=== PATIENT | male | born 1960 | race Caucasian/White ===

== ENCOUNTER 2019-11-07 09:31 | Emergency (ER) | payer MEDICAID ==
[~2019-11-07] VITALS: Ht 177.8 cm; Wt 72.0 kg
[2019-11-07 10:54] LABS: BASOPHILS # (AUTO) 0.07 x10^3/uL (0-0.1); BASOPHILS % (AUTO) 1 % (0-1); EOSINOPHILS # (AUTO) 0.06 x10^3/uL (0-0.4); EOSINOPHILS % (AUTO) 1 % (1-7); LYMPHOCYTES # (AUTO) 2.22 x10^3/uL (1-3.4); LYMPHOCYTES % (AUTO) 17 % (22-44); MD NO; MEAN CORPUSCULAR HEMOGLOBIN 30.6 pg (27.5-34.5); MEAN CORPUSCULAR VOLUME 92.6 fL (81-97); MEAN PLATELET VOLUME 9.9 fL (7.4-10.4); MONOCYTES # (AUTO) 0.54 x10^3/uL (0.2-0.8); MONOCYTES % (AUTO) 4 % (2-9); NEUTROPHILS # (AUTO) 9.95 x10^3/uL (1.8-6.8); NEUTROPHILS % (AUTO) 78 % (42-75); PLATELET COUNT 187 x10^3/uL (130-400); RED BLOOD COUNT 5.45 x10^6/uL (4.38-5.82); RED CELL DISTRIBUTION WIDTH 13.6 % (9.4-14.8)
[2019-11-07 11:07] LABS: ALANINE AMINOTRANSFERASE 56 U/L (12-78); ALBUMIN 2.9 g/dL (3.4-5.0); ANION GAP 8 mmol/L (5-15); CALCIUM 8.5 mg/dL (8.5-10.1); CHLORIDE 100 mmol/L (98-107); CREATININE 1.08 mg/dL (0.7-1.3)
[2019-11-07 11:11] LABS: ALKALINE PHOSPHATASE 109 U/L (45-117); TOTAL PROTEIN 5.7 g/dL (6.4-8.2); TROPONIN I 0.034 ng/mL (0.000-0.045)
[2019-11-07] MEDS ORDERED: INSULIN SINGLE DOSE, ER ONE ×2 (11:16→12:09)
[2019-11-07] MEDS ORDERED: INSULIN REGULAR 100 UNITS/ML, 3ML VIAL SQ-INSULIN ONE (11:30)
[2019-11-07] MEDS ORDERED: SODIUM CHLORIDE 0.9% 1,000ML IVBOLUS ONE (12:30)
[2019-11-07] MEDS ORDERED: INSULIN REGULAR 100 UNITS/ML, 3ML VIAL IVPush ONE (12:30)
--- NOTE | 2019-11-07 13:30 | NUR ---
PB&J, STRING CHEESE, AND MILK PROVIDED TO PT PRIOR TO DC. PT DENIES ANY S/S OF LOW BLOOD SUGAR.
[2019-11-07 13:59] VITALS: BP 123/74
== END 2019-11-07 14:04 | disposition home or self-care (01) ==
LOC: ED 09:47
DX: E11.65 Type 2 diabetes mellitus with hyperglycemia (principal); Z72.9 Problem related to lifestyle, unspecified; F17.200 Nicotine dependence, unspecified, uncomplicated; I48.91 Unspecified atrial fibrillation; R94.31 Abnormal electrocardiogram [ECG] [EKG]
CPT/HCPCS: 36415; 71045; 80053; 82962; 84484; 85025; 93005; 96361; 96374; 99285; J1815; J7030

== ENCOUNTER 2019-12-09 09:39 | Inpatient (IN) | payer MEDICAID ==
[~2019-12-09] VITALS: Ht 177.8 cm; Wt 69.7 kg
--- NOTE | 2019-12-09 10:09 | NUR ---
L EYE BLURRED VISION X2 WEEKS, R ANKLE SWELLING. PT IN AFIB RATE 100-140'S IN TRIAGE, PT STATES HX AFIT, NOT ON BLOOD THINNERS. MD AT BEDSIDE FOR EVAL. PT PLACED ON MONITOR, CALL LIGHT WITHIN REACH.
--- NOTE | 2019-12-09 10:11 | NUR ---
EYE PATCH GIVEN TO PT
[2019-12-09] MEDS ORDERED: DILTIAZEM 5 MG/ML, 5ML IV ONE (10:30)
[2019-12-09] MEDS ORDERED: SODIUM CHLORIDE FLUSH 10ML SYR IVF ONE (10:30)
[2019-12-09] MEDS ORDERED: DILTIAZEM 5 MG/ML, 5ML ONE (10:32)
[2019-12-09 10:39] LABS: PROTHROMBIN TIME 10.6 Seconds (9.6-11.5)
[2019-12-09 10:40] LABS: ALANINE AMINOTRANSFERASE 25 U/L (12-78); ALBUMIN 2.7 g/dL (3.4-5.0); ANION GAP 9 mmol/L (5-15); CALCIUM 8.1 mg/dL (8.5-10.1); CHLORIDE 95 mmol/L (98-107); CREATININE 1.25 mg/dL (0.7-1.3)
[2019-12-09 10:41] LABS: BASOPHILS # (AUTO) 0.02 x10^3/uL (0-0.1); BASOPHILS % (AUTO) 0 % (0-1); EOSINOPHILS # (AUTO) 0.04 x10^3/uL (0-0.4); EOSINOPHILS % (AUTO) 0 % (1-7); LYMPHOCYTES # (AUTO) 1.29 x10^3/uL (1-3.4); LYMPHOCYTES % (AUTO) 9 % (22-44); MD NO; MEAN CORPUSCULAR HEMOGLOBIN 29.9 pg (27.5-34.5); MEAN CORPUSCULAR HGB CONC 32.5 g/dL (33.2-36.2); MEAN CORPUSCULAR VOLUME 91.8 fL (81-97); MEAN PLATELET VOLUME 9.8 fL (7.4-10.4); MONOCYTES % (AUTO) 5 % (2-9); NEUTROPHILS # (AUTO) 12.02 x10^3/uL (1.8-6.8); NEUTROPHILS % (AUTO) 85 % (42-75); PLATELET COUNT 203 x10^3/uL (130-400); RED BLOOD COUNT 4.88 x10^6/uL (4.38-5.82); RED CELL DISTRIBUTION WIDTH 14.3 % (9.4-14.8)
--- NOTE | 2019-12-09 10:44 | NUR ---
PT MEDICATED PER MAR
[2019-12-09 10:45] LABS: ALKALINE PHOSPHATASE 116 U/L (45-117); BILIRUBIN,TOTAL 1.4 mg/dL (0.2-1.0); TOTAL PROTEIN 5.6 g/dL (6.4-8.2); TROPONIN I 0.033 ng/mL (0.000-0.045)
[2019-12-09] MEDS ORDERED: SODIUM CHLORIDE 0.9% 1,000ML IVBOLUS ONE ×2 (11:00→12:00)
--- NOTE | 2019-12-09 11:14 | NUR ---
NOTIFIED OF CRITICAL BLOOD SUGAR 638, 1ST LITER IVF STARTED.
[2019-12-09] MEDS ORDERED: SODIUM CHLORIDE 0.9% 1,000 ML IV ONE (13:52)
--- NOTE | 2019-12-09 14:46 | NUR ---
REPORT TO MIGUEL ANGEL SAGASTUME
[2019-12-09] MEDS ORDERED: ONDANSETRON ODT 4 MG PO PRN (15:30)
[2019-12-09] MEDS ORDERED: DOCUSATE 100 MG CAPSULE PO PRN (15:30)
[2019-12-09] MEDS ORDERED: POLYETHYLENE GLYCOL 17 GM PACKET PO PRN (15:30)
[2019-12-09] MEDS ORDERED: ONDANSETRON 2MG/ML, 2ML IVPush PRN (15:30)
[2019-12-09 15:49] VITALS: BP 145/91
[2019-12-09] MEDS: INSULIN LISPRO 100 UNITS/ML, PEN SQ-INSULIN SCH ×2 (16:00→20:41)
[2019-12-09] MEDS: METOPROLOL TARTRATE 25 MG TAB PO SCH (17:21)
[2019-12-09] MEDS: ENOXAPARIN 40 MG/0.4 ML SQ SCH (17:21)
[2019-12-09] MEDS: NICOTINE 14MG/24 HR PATCH.TD24 TD SCH (17:26)
[2019-12-09] MEDS: ACETAMINOPHEN 325 MG TABLET PO PRN (20:40)
[2019-12-09 21:08] VITALS: BP 119/78
[2019-12-10 01:13] VITALS: BP 118/79
[2019-12-10] MEDS: METOPROLOL TARTRATE 25 MG TAB PO SCH ×2 (05:05→17:18)
[2019-12-10] MEDS: ASPIRIN 81 MG TABLET EC PO SCH (05:05)
[2019-12-10 06:53] LABS: MICROSCOPIC NOT IND
[2019-12-10 06:54] VITALS: BP 132/82
[2019-12-10] MEDS: INSULIN LISPRO 100 UNITS/ML, PEN SQ-INSULIN SCH ×4 (08:21→21:44)
[2019-12-10 12:55] VITALS: BP 121/85
[2019-12-10] MEDS: NICOTINE 14MG/24 HR PATCH.TD24 TD SCH (17:20)
[2019-12-10] MEDS: ENOXAPARIN 40 MG/0.4 ML SQ SCH (17:20)
[2019-12-10 20:07] VITALS: BP 124/84
[2019-12-10] MEDS: INSULIN GLARGINE 100 UNITS/ML, PEN SQ-INSULIN SCH (21:44)
[2019-12-11] VITALS (7 sets, daily range): BP systolic 115–155; BP diastolic 75–90
[2019-12-11] MEDS: ASPIRIN 81 MG TABLET EC PO SCH (05:55)
[2019-12-11] MEDS: METOPROLOL TARTRATE 25 MG TAB PO SCH (05:55)
[2019-12-11] MEDS: ACETAMINOPHEN 325 MG TABLET PO PRN ×2 (05:55→15:43)
[2019-12-11] MEDS: INSULIN LISPRO 100 UNITS/ML, PEN SQ-INSULIN SCH ×3 (07:00→16:51)
[2019-12-11] MEDS ORDERED: METOPROLOL TARTRATE 25 MG TAB PO ONE (08:00)
[2019-12-11] MEDS: INSULIN GLARGINE 100 UNITS/ML, PEN SQ-INSULIN SCH (08:32)
[2019-12-11] MEDS ORDERED: INSU100I13 SQ-INSULIN (15:30)
[2019-12-11] MEDS ORDERED: METO25TA35 PO (15:30)
[2019-12-11] MEDS ORDERED: LISI5TAB7 PO (15:30)
[2019-12-11] MEDS ORDERED: ASPI81TA45 PO (15:30)
[2019-12-11] MEDS: ENOXAPARIN 40 MG/0.4 ML SQ SCH (17:00)
[2019-12-11] MEDS: NICOTINE 14MG/24 HR PATCH.TD24 TD SCH (17:00)
[2019-12-11] MEDS ORDERED: METOPROLOL TARTRATE 25 MG TAB PO SCH (18:00)
== END 2019-12-11 17:58 | disposition home or self-care (01) | DRG 309 ==
LOC: ED 10:28 → EDIP 13:52 → 5SO 15:11
PROVIDERS: ADMIT Family Medicine; ATTEND Family Medicine
DX: I48.91 Unspecified atrial fibrillation (principal); D68.69 Other thrombophilia; R65.10 Systemic inflammatory response syndrome (SIRS) of non-infectious origin without acute organ dysfunction; E11.65 Type 2 diabetes mellitus with hyperglycemia; I10 Essential (primary) hypertension; H53.8 Other visual disturbances; E80.6 Other disorders of bilirubin metabolism; Z59.0 Homelessness; Z72.0 Tobacco use; Z79.4 Long term (current) use of insulin; Z79.82 Long term (current) use of aspirin; Z91.19 Patient's noncompliance with other medical treatment and regimen
CPT/HCPCS: 36415; 80053; 81003; 82962; 84484; 85025; 85610; 85730; 93005; 96372; 99291; G0378; J1650; J1815; J7030

== ENCOUNTER 2020-01-27 21:21 | Inpatient (IN) | payer MEDICAID ==
[~2020-01-27] VITALS: Ht 177.8 cm; Wt 70.2 kg
[~2020-01-27 21:21] MED LIST: ASPI81TA45 PO; INSU100I13 SQ-INSULIN; LISI5TAB7 PO; METO25TA35 PO
[2020-01-27] MEDS ORDERED: DILTIAZEM 5 MG/ML, 5ML ONE ×2 (21:43→22:16)
[2020-01-27] MEDS ORDERED: SODIUM CHLORIDE 0.9% 1,000ML IVBOLUS ONE (22:00)
[2020-01-27] MEDS ORDERED: DILTIAZEM 5 MG/ML, 5ML IV ONE (22:00)
[2020-01-27 22:01] LABS: ALBUMIN 2.7 g/dL (3.4-5.0); ANION GAP 11 mmol/L (5-15); CALCIUM 8.8 mg/dL (8.5-10.1); CHLORIDE 97 mmol/L (98-107); CREATININE 1.19 mg/dL (0.7-1.3)
[2020-01-27 22:05] LABS: TROPONIN I 0.051 ng/mL (0.000-0.045)
[2020-01-27 22:13] LABS: MEAN CORPUSCULAR HEMOGLOBIN 29.9 pg (27.5-34.5); MEAN CORPUSCULAR HGB CONC 33.1 g/dL (33.2-36.2); MEAN PLATELET VOLUME 10.6 fL (7.4-10.4); PLATELET COUNT 229 x10^3/uL (130-400); RED BLOOD COUNT 5.02 x10^6/uL (4.38-5.82); RED CELL DISTRIBUTION WIDTH 14.8 % (9.4-14.8)
[2020-01-27] MEDS ORDERED: ASPIRIN 81 MG TABLET CHEW ONE (22:16)
[2020-01-27] MEDS ORDERED: NEOSPORIN OINT. PKT 1 PACKET ONE (22:17)
[2020-01-27] MEDS ORDERED: ASPIRIN 325 MG TABLET ONE (22:29)
[2020-01-27] MEDS ORDERED: ASPIRIN 325 MG TABLET PO ONE (22:30)
[2020-01-27] MEDS ORDERED: DILTIAZEM 5 MG/ML, 5ML IVPush ONE (22:30)
[2020-01-27 23:00] LABS: BASOPHILS # (AUTO) 0.09 x10^3/uL (0-0.1); BASOPHILS % (AUTO) 1 % (0-1); EOSINOPHILS # (AUTO) 0.04 x10^3/uL (0-0.4); EOSINOPHILS % (AUTO) 0 % (1-7); LYMPHOCYTES # (AUTO) 2.02 x10^3/uL (1-3.4); LYMPHOCYTES % (AUTO) 11 % (22-44); MD SCAN; MONOCYTES % (AUTO) 9 % (2-9); NEUTROPHILS # (AUTO) 14.66 x10^3/uL (1.8-6.8); NEUTROPHILS % (AUTO) 79 % (42-75)
[2020-01-27] MEDS ORDERED: ACETAMINOPHEN 650 MG/20.3 ML UDC PO PRN (23:00)
[2020-01-27] MEDS ORDERED: BISACODYL 5 MG EC TABLET PO PRN (23:00)
[2020-01-27] MEDS ORDERED: BISACODYL 10 MG SUPP PR PRN (23:00)
[2020-01-27] MEDS ORDERED: ZOLPIDEM 5MG TABLET PO PRN (23:00)
[2020-01-27] MEDS ORDERED: ONDANSETRON 2MG/ML, 2ML IV PRN (23:00)
[2020-01-27 23:23] LABS: FREE T4 (FREE THYROXINE) 1.34 ng/dL (0.76-1.46); TROPONIN I 0.048 ng/mL (0.000-0.045)
[2020-01-28] MEDS ORDERED: ACETAMINOPHEN 325 MG TABLET ONE (02:13)
[2020-01-28] MEDS: INSULIN LISPRO 100 UNITS/ML, PEN SQ-INSULIN SCH ×5 (02:17→20:29)
[2020-01-28] MEDS: ACETAMINOPHEN 325 MG TABLET PO PRN ×3 (02:17→20:57)
[2020-01-28] MEDS: AMOXICILLIN/CLAV 875-125MG TABLET PO SCH ×3 (02:17→20:28)
[2020-01-28] MEDS: SODIUM CHLORIDE 0.9% 1,000 ML IV SCH ×2 (02:18→15:00)
[2020-01-28] MEDS: DILTIAZEM 60 MG TABLET PO SCH ×4 (02:19→20:28)
[2020-01-28 02:37] VITALS: BP 146/95
[2020-01-28] MEDS: ASPIRIN 81 MG TABLET EC PO SCH (04:46)
[2020-01-28] MEDS: METOPROLOL TARTRATE 50 MG TAB PO SCH ×2 (04:46→18:15)
[2020-01-28] MEDS: SODIUM CHLORIDE NASAL SPRAY 45ML BOTTLE NAS PRN ×2 (04:47→08:30)
[2020-01-28 05:50] LABS: MEAN CORPUSCULAR HEMOGLOBIN 29.3 pg (27.5-34.5); MEAN CORPUSCULAR HGB CONC 32.1 g/dL (33.2-36.2); PLATELET COUNT 204 x10^3/uL (130-400); RED BLOOD COUNT 4.81 x10^6/uL (4.38-5.82); RED CELL DISTRIBUTION WIDTH 14.9 % (9.4-14.8)
[2020-01-28 05:59] LABS: CHLORIDE 102 mmol/L (98-107)
[2020-01-28 06:14] LABS: ALANINE AMINOTRANSFERASE 27 U/L (12-78); ALBUMIN 2.4 g/dL (3.4-5.0); ALKALINE PHOSPHATASE 94 U/L (45-117); ANION GAP 7 mmol/L (5-15); BILIRUBIN,TOTAL 1.1 mg/dL (0.2-1.0); CALCIUM 8.1 mg/dL (8.5-10.1); TOTAL PROTEIN 5.2 g/dL (6.4-8.2); TROPONIN I 0.048 ng/mL (0.000-0.045)
[2020-01-28 06:20] LABS: MD YES
[2020-01-28 06:22] LABS: <PLATELET ESTIMATE> ADEQUATE; <PLT MORPHOLOGY> NORMAL PLT MORPH; <RBC MORPHOLOGY> NORMAL; BAND#(MANUAL) 1.08 x10^3/uL; BANDS%(MANUAL) 6 % (0-7); LYMPH#(MANUAL) 2.88 x10^3/uL (1-3.4); LYMPHS% (MANUAL) 16 % (22-44); MONOS#(MANUAL) 1.08 x10^3/uL (0.3-2.7); MONOS% (MANUAL) 6 % (2-9); SEG#(MANUAL) 12.96 x10^3/uL (1.8-6.8); SEGS% (MANUAL) 72 % (42-75)
[2020-01-28] MEDS: LISINOPRIL 5 MG TABLET PO SCH (08:29)
[2020-01-28] MEDS: SODIUM CHLORIDE FLUSH 10ML SYR IVF SCH ×2 (08:29→21:00)
[2020-01-28 08:42] VITALS: BP 105/73
[2020-01-28] MEDS ORDERED: INSULIN GLARGINE 100 UNITS/ML, PEN SQ-INSULIN SCH (09:00)
[2020-01-28] MEDS: FLUTICASONE NASAL SPRAY 16GM NAS SCH ×2 (09:00→21:00)
[2020-01-28] MEDS: INSULIN GLARGINE 100 UNITS/ML, PEN SQ-INSULIN SCH ×2 (09:39→20:29)
[2020-01-28 13:10] VITALS: BP 100/67
[2020-01-28] MEDS ORDERED: RIVAROXABAN 20 MG TABLET PO SCH (17:00)
[2020-01-28 18:31] VITALS: BP 91/60
[2020-01-29 01:20] VITALS: BP 113/73
[2020-01-29] MEDS: DILTIAZEM 60 MG TABLET PO SCH ×2 (02:24→08:07)
[2020-01-29] MEDS: ASPIRIN 81 MG TABLET EC PO SCH (05:34)
[2020-01-29] MEDS: METOPROLOL TARTRATE 50 MG TAB PO SCH (05:34)
[2020-01-29] MEDS: SODIUM CHLORIDE 0.9% 1,000 ML IV SCH (05:34)
[2020-01-29] MEDS: INSULIN LISPRO 100 UNITS/ML, PEN SQ-INSULIN SCH ×2 (07:00→11:26)
[2020-01-29] MEDS: FLUTICASONE NASAL SPRAY 16GM NAS SCH (08:02)
[2020-01-29] MEDS: LISINOPRIL 5 MG TABLET PO SCH (08:03)
[2020-01-29] MEDS: SODIUM CHLORIDE FLUSH 10ML SYR IVF SCH (08:03)
[2020-01-29] MEDS: AMOXICILLIN/CLAV 875-125MG TABLET PO SCH (08:03)
[2020-01-29] MEDS: INSULIN GLARGINE 100 UNITS/ML, PEN SQ-INSULIN SCH (09:00)
[2020-01-29 09:12] LABS: MEAN CORPUSCULAR HEMOGLOBIN 29.3 pg (27.5-34.5); MEAN CORPUSCULAR HGB CONC 31.9 g/dL (33.2-36.2); MEAN PLATELET VOLUME 9.4 fL (7.4-10.4); PLATELET COUNT 224 x10^3/uL (130-400); RED BLOOD COUNT 4.82 x10^6/uL (4.38-5.82); RED CELL DISTRIBUTION WIDTH 14.9 % (9.4-14.8)
[2020-01-29 09:21] LABS: ALANINE AMINOTRANSFERASE 21 U/L (12-78); ANION GAP 5 mmol/L (5-15); CALCIUM 8.4 mg/dL (8.5-10.1); CHLORIDE 106 mmol/L (98-107); CREATININE 0.81 mg/dL (0.7-1.3)
[2020-01-29 09:23] LABS: ALKALINE PHOSPHATASE 81 U/L (45-117); BILIRUBIN,TOTAL 0.7 mg/dL (0.2-1.0); TOTAL PROTEIN 4.9 g/dL (6.4-8.2)
[2020-01-29 09:31] LABS: BASOPHILS # (AUTO) 0.07 x10^3/uL (0-0.1); BASOPHILS % (AUTO) 0 % (0-1); EOSINOPHILS # (AUTO) 0.08 x10^3/uL (0-0.4); EOSINOPHILS % (AUTO) 1 % (1-7); LYMPHOCYTES # (AUTO) 1.88 x10^3/uL (1-3.4); LYMPHOCYTES % (AUTO) 11 % (22-44); MD SCAN; MONOCYTES # (AUTO) 0.88 x10^3/uL (0.2-0.8); MONOCYTES % (AUTO) 5 % (2-9); NEUTROPHILS # (AUTO) 13.78 x10^3/uL (1.8-6.8); NEUTROPHILS % (AUTO) 83 % (42-75)
[2020-01-29] MEDS ORDERED: FLUT16SP24 NAS (10:53)
[2020-01-29] MEDS ORDERED: RIVA20TA PO (10:53)
[2020-01-29] MEDS ORDERED: MUPI15CR9 TD (10:55)
[2020-01-29] MEDS: ACETAMINOPHEN 325 MG TABLET PO PRN (11:19)
== END 2020-01-29 12:44 | disposition home or self-care (01) | DRG 309 ==
LOC: ED 22:13 → EDIP 22:49 → 4NW 23:45
PROVIDERS: ADMIT Internal Medicine; ATTEND Family Medicine
PROC: 5A2204Z Restoration of Cardiac Rhythm, Single (ICD-10-PCS; principal; 2020-01-27)
DX: I48.91 Unspecified atrial fibrillation (principal); E87.1 Hypo-osmolality and hyponatremia; J01.90 Acute sinusitis, unspecified; E11.65 Type 2 diabetes mellitus with hyperglycemia; E86.0 Dehydration; E87.8 Other disorders of electrolyte and fluid balance, not elsewhere classified; F17.200 Nicotine dependence, unspecified, uncomplicated; I10 Essential (primary) hypertension; Z59.0 Homelessness; Z79.4 Long term (current) use of insulin; Z82.49 Family history of ischemic heart disease and other diseases of the circulatory system; Z03.818 Encounter for observation for suspected exposure to other biological agents ruled out; Z91.14 Patient's other noncompliance with medication regimen
CPT/HCPCS: 36415; 71045; 76380; 80048; 80053; 82040; 82728; 82962; 83036; 83615; 83735; 84145; 84439; 84443; 84484; 85025; 85379; 87635; 93005; 96361; 96374; 99285; G0378; J1815; J7030

== ENCOUNTER 2020-02-29 05:55 | Emergency (ER) | payer MEDICAID ==
[~2020-02-29] VITALS: Ht 177.8 cm; Wt 70.4 kg
[~2020-02-29 05:55] MED LIST changes: +FLUT16SP24 NAS; +MUPI15CR9 TD; +RIVA20TA PO
--- NOTE | 2020-02-29 06:18 | NUR ---
pt states he came in today due to not being able to get insulin needles filled and hasnt taken his insulin in about 4 days. pt reports he recently started feeling dizzy and urinating more often. pt denies any N/V/D at this time. pt feels as though he is also drinking more water. pt NAD, resting on gurney, gross neuro intact. WCCOSME. Law ESCOBAR at for eval and poc. FS 373 pt placed on spo2/bp monitoring at this time
[2020-02-29] MEDS ORDERED: SODIUM CHLORIDE 0.9% 1,000ML IVBOLUS ONE (06:30)
--- NOTE | 2020-02-29 06:35 | NUR ---
pt resting on gurney, lights dimmed for comfort, MD CARIN aware pt is tachycardic. WCTM.
[2020-02-29] MEDS ORDERED: INSULIN SINGLE DOSE, ER ONE (06:45)
--- NOTE | 2020-02-29 06:53 | NUR ---
BEDSIDE REPORT TO WILLY RN, PT CARE TO BE TRANSFERRED AT THIS TIME.
--- NOTE | 2020-02-29 06:59 | NUR ---
I AM ASSUMING CARE OF THIS PT FROM BLOSSOM (TANIKA) AT THIS TIME. SBAR WAS EXCHANGED AT THE BEDSIDE.
[2020-02-29] MEDS ORDERED: INSULIN REGULAR 100 UNITS/ML, 3ML VIAL SQ-INSULIN ONE (07:00)
[2020-02-29 07:56] VITALS: BP 128/76
== END 2020-02-29 07:58 | disposition home or self-care (01) ==
LOC: ED 07:01
DX: I48.20 Chronic atrial fibrillation, unspecified (principal); E11.65 Type 2 diabetes mellitus with hyperglycemia; I10 Essential (primary) hypertension
CPT/HCPCS: 82962; 96360; 99283; J1815; J7030

== ENCOUNTER 2020-04-15 17:00 | Emergency (ER) | payer MEDICAID ==
[~2020-04-15] VITALS: Ht 177.8 cm; Wt 70.7 kg
--- NOTE | 2020-04-15 17:08 | NUR ---
TRANSITION LEAD: EKG DONE IN TRIAGE
[2020-04-15] MEDS ORDERED: DILTIAZEM 5 MG/ML, 5ML IV ONE (17:30)
--- NOTE | 2020-04-15 17:30 | NUR ---
LATE NOTE D/T PT CARE: UPON ENTERING PT WITH HR 140-160. PT SOB WITH COUGH. REPEAT EKG DONE. PIV ESTABLISHED. ERMD UPDATED
[2020-04-15] MEDS ORDERED: DILTIAZEM 5 MG/ML, 5ML ONE (17:32)
[2020-04-15 17:42] LABS: BASOPHILS % (AUTO) 1 % (0-1); EOSINOPHILS % (AUTO) 1 % (1-7); LYMPHOCYTES % (AUTO) 7 % (22-44); MEAN CORPUSCULAR HEMOGLOBIN 28.9 pg (27.5-34.5); MEAN CORPUSCULAR HGB CONC 32.8 g/dL (33.2-36.2); MEAN PLATELET VOLUME 9.7 fL (7.4-10.4); MONOCYTES % (AUTO) 5 % (2-9); NEUTROPHILS % (AUTO) 86 % (42-75); PLATELET COUNT 162 x10^3/uL (130-400); RED BLOOD COUNT 4.96 x10^6/uL (4.38-5.82); RED CELL DISTRIBUTION WIDTH 15.7 % (9.4-14.8)
[2020-04-15 17:52] LABS: ALANINE AMINOTRANSFERASE 31 U/L (12-78); ALBUMIN 3.5 g/dL (3.4-5.0); ANION GAP 5 mmol/L (5-15); CHLORIDE 100 mmol/L (98-107); CREATININE 1.23 mg/dL (0.7-1.3); MD NO
--- NOTE | 2020-04-15 17:53 | NUR ---
PT MEDICATED PER MAR, HR NOW 100-115. PT WITH LESS SOB
[2020-04-15 17:56] LABS: ALKALINE PHOSPHATASE 106 U/L (45-117); TOTAL PROTEIN 6.9 g/dL (6.4-8.2); TROPONIN I 0.051 ng/mL (0.000-0.045)
[2020-04-15] MEDS ORDERED: METOPROLOL TARTRATE 50 MG TAB ONE (18:21)
[2020-04-15] MEDS ORDERED: SODIUM CHLORIDE 0.9%, 500ML IVBOLUS ONE (18:30)
[2020-04-15] MEDS ORDERED: METOPROLOL TARTRATE 50 MG TAB PO ONE (18:30)
--- NOTE | 2020-04-15 19:18 | NUR ---
Assumed care of pt. Pt states unchanged chest pain. HR continues to be variable, pt in and out of a-fib with HR ranging from 90s to rapid a-fib in 160s. Pt states he is unsure if he wants to be cardioverted. A&o x4, answering questions appropriately. Provider aware. Remains on tele.
[2020-04-15 19:27] VITALS: BP 113/71
[2020-04-15 19:31] LABS: MICROSCOPIC INDICATED
[2020-04-15 19:35] LABS: AMPHETAMINE SCREEN, URINE Negative (Negative); BARBITURATE SCREEN, URINE Negative (Negative); BENZODIAZEPINE SCREEN, URINE Negative (Negative); CANNABINOID SCREEN, URINE Negative (Negative); COCAINE SCREEN, URINE Negative (Negative); METHADONE SCREEN, URINE Negative (Negative); OPIATE SCREEN, URINE Negative (Negative)
== END 2020-04-15 19:59 | disposition home or self-care (01) ==
LOC: ED 19:20
DX: I48.20 Chronic atrial fibrillation, unspecified (principal); R55 Syncope and collapse; I44.4 Left anterior fascicular block; I10 Essential (primary) hypertension; E11.9 Type 2 diabetes mellitus without complications; F17.210 Nicotine dependence, cigarettes, uncomplicated
CPT/HCPCS: 36415; 71045; 80053; 80307; 81001; 84484; 85025; 93005; 96361; 96374; 99285; J7040; 90471; 99291

== ENCOUNTER 2020-08-10 03:28 | Emergency (ER) | payer MEDICAID ==
[~2020-08-10] VITALS: Ht 180.3 cm; Wt 70.0 kg
[2020-08-10 03:36] VITALS: BP 125/100
[2020-08-10] MEDS ORDERED: LIDOCAINE-MPF 1%, 5ML ONE (03:41)
[2020-08-10] MEDS ORDERED: CEPHALEXIN 500 MG CAPSULE PO ONE (04:00)
[2020-08-10] MEDS ORDERED: LIDOCAINE-MPF 1%, 5ML INFIL ONE (04:00)
[2020-08-10] MEDS ORDERED: SULFAMETH./TRIMETHOPRIM DS 800MG/160MG TABLET PO ONE (04:00)
[2020-08-10] MEDS ORDERED: CEPHALEXIN 500 MG CAPSULE ONE (04:28)
[2020-08-10] MEDS ORDERED: SULFAMETH./TRIMETHOPRIM DS 800MG/160MG TABLET ONE (04:28)
--- NOTE | 2020-08-10 04:40 | NUR ---
ERP AT BEDSIDE
--- NOTE | 2020-08-10 05:13 | NUR ---
Patient given discharge instructions and they have confirmed that they understand the instructions. Patient ambulatory with steady gait. Pt provided bus pass upon d/c per request.
== END 2020-08-10 05:15 | disposition home or self-care (01) ==
LOC: ED 05:00
DX: L02.414 Cutaneous abscess of left upper limb (principal); L03.114 Cellulitis of left upper limb; R50.9 Fever, unspecified; I10 Essential (primary) hypertension; E11.9 Type 2 diabetes mellitus without complications; I48.91 Unspecified atrial fibrillation; F17.210 Nicotine dependence, cigarettes, uncomplicated
CPT/HCPCS: 10060; 99283; 99406

== ENCOUNTER 2021-03-06 16:11 | Emergency (ER) | payer MEDICAID ==
[~2021-03-06] VITALS: Ht 177.8 cm; Wt 63.2 kg
[2021-03-06 16:18] VITALS: BP 154/93
[2021-03-06] MEDS ORDERED: BACITRACIN ZINC OINT 500U/GM, 0.9 GM ONE (16:38)
--- NOTE | 2021-03-06 17:13 | NUR ---
PT REFUSED DRESSING ON FOOT WOUND.
== END 2021-03-06 17:20 | disposition home or self-care (01) ==
LOC: ED 17:10
DX: M79.671 Pain in right foot (principal); R00.0 Tachycardia, unspecified; E78.5 Hyperlipidemia, unspecified; I48.91 Unspecified atrial fibrillation; I11.0 Hypertensive heart disease with heart failure; E11.65 Type 2 diabetes mellitus with hyperglycemia; Z59.0 Homelessness
CPT/HCPCS: 99283